=== PATIENT | male | born 1940 | race Caucasian/White ===

== ENCOUNTER 2018-03-11 14:02 | Inpatient (IN) ==
[2018-03-11] MEDS ORDERED: HYDROmorphone 2 MG/ML VIAL IV PRN (14:52)
--- NOTE | 2018-03-11 14:58 | Emergency Department Note ---
Fall HPI - General Chief Complaint: Fall Stated Complaint: Fall Time Seen by Provider: 03/11/18 14:12 Source: EMS Mode of arrival: EMS - History of Present Illness HPI Narrative: This patient slipped and fell getting out of a car short while ago and broke his right hip and right shoulder. Did not hit his head. He does have a history of atrial fib intermittently but is not on any blood thinners. Otherwise says his health history is okay. - Related Data Home Medications Medication Instructions Recorded Confirmed Carvedilol [Coreg] 3.125 mg PO BID 03/11/18 03/11/18 Citalopram [Celexa] 40 mg PO HS 03/11/18 03/11/18 Dutasteride [Avodart] 0.5 mg PO DAILY 03/11/18 03/11/18 Latanoprost/Pf [Latanoprost 0.005% 7.5 ml OP HS 03/11/18 03/11/18 Eye Drop] Propafenone [Rythmol] 225 mg PO Q8 03/11/18 03/11/18 Tamsulosin [Flomax] 0.8 mg PO HS 03/11/18 03/11/18 Allergies Allergy/AdvReac Type Severity Reaction Status Date / Time No Known Drug Allergies Allergy Verified 03/11/18 14:02 Review of Systems All systems ED: reviewed and negative except as stated. Fall PMH - Past Medical History Medical history: Reports: atrial fibrillation - Social History smoking status: Never smoker Physical Exam Limitations: no limitations General appearance: alert Head: atraumatic Eye: Present: normal appearance ENT: normal exam Neck: Present: normal inspection Chest: Present: normal inspection Respiratory: Present: normal lung sounds bilaterally Cardiovascular: Present: regular rate, normal rhythm, normal heart sounds Abdominal: Present: soft. Absent: distention, tenderness Neurological: Present: alert Psychiatric: Present: normal affect Skin: Present: warm, dry Course Vital Signs Temperature 97.5 F 03/11/18 14:03 Pulse Rate 70 03/11/18 14:03 Respiratory Rate 18 03/11/18 14:03 Blood Pressure 166/100 03/11/18 14:03 Pulse Oximetry (%) 95 03/11/18 14:03 Temperature 97.5 F 03/11/18 15:50 Pulse Rate 73 03/11/18 15:50 Respiratory Rate 18 03/11/18 15:50 Blood Pressure 156/93 03/11/18 15:50 Pulse Oximetry (%) 98 03/11/18 15:50 Fall - MDM Narrative Medical decision making narrative: I discussed this case with the orthopedist Dr. Enrique who wants to fix him tonight. Dr. Delgado with the hospitalist will admit him to the hospital. - Lab Data Lab results reviewed: Yes I reviewed the patient's lab results. Result diagrams: 03/11/18 15:13 03/11/18 15:13 Lab Results 03/11/18 03/11/18 03/11/18 Range/Units 15:13 15:13 15:16 WBC 7.7 (4.5-11.0) K/mcL RBC 3.54 L (4.50-5.90) M/mcL Hgb 11.6 L (13.5-16.5) g/dL Hct 34.8 L (41.0-55.0) % MCV 98.5 (80.0-100.0) fL MCH 32.8 (26.0-34.0) pg MCHC 33.3 (31.0-36.0) g/dL RDW 12.4 (11.5-14.5) % Plt Count 177 (140-440) K/mcL MPV 7.6 (7.4-10.4) fL Gran % 82.2 H (38.0-78.0) % Lymph % (Auto) 9.6 L (15.5-49.0) % Jay % (Auto) 6.0 (1.0-12.0) % Eos % (Auto) 1.7 (0.0-7.0) % Baso % (Auto) 0.5 (0.0-2.0) % Gran # 6.3 (1.8-8.0) K/mcL Lymph # (Auto) 0.7 L (1.5-4.8) K/mcL Jay # (Auto) 0.5 (0.1-0.9) K/mcL Eos # (Auto) 0.1 (0.0-0.7) K/mcL Baso # (Auto) 0 (0.0-0.3) K/mcL PT 15.3 H (11.9-14.5) sec INR 1.2 H (0.9-1.1) Urine Color Yellow Urine Appearance Clear Urine pH 6.0 (5.0-9.0) Ur Specific [place] 1.020 (1.000-1.035) Urine Protein Neg (NEG) mg/dL Urine Glucose (UA) Negative (NEG) mg/dL Urine Ketones 5/tr A (NEG) mg/dL Urine Occult Blood Neg (<0.03) mg/dL Urine Nitrate Neg (NEG) Urine Bilirubin Neg (NEG) mg/dL Urine Urobilinogen 2.0 A (NEG) mg/dL Ur Leukocyte Esterase Neg (NEG) /uL Ur Culture Indicated? No - Radiology Data Radiology results reviewed: Yes I reviewed the patient's radiology results. Disposition Pt seen by [facility]/PA only: No Clinical Impression: Shoulder fracture, right, Hip fracture, right Disposition: Xfer As Inpt ([facility]) Condition: Fair Referrals: Lennox Guerrero MD [Primary Care Provider] - Time of Disposition: 15:56
--- NOTE | 2018-03-11 15:00 | XRay Report ---
CLINICAL INFORMATION: Trauma - small COMPARISON: None. FINDINGS: Mildly comminuted intertrochanteric fracture shows 4 cm medial displacement of lesser trochanteric fragment. There is 2 cm inferior and lateral displacement of the distal femoral diaphyseal fragment. This has resulted in coxa vera type angulation. Both SI and hip joints are normal in width and alignment without arthritic change. Soft tissues normal. IMPRESSION: Mildly comminuted, displaced intertrochanteric fracture of the right hip. Interpreted and Authenticated by: Damion Amador 03/11/18
--- NOTE | 2018-03-11 15:03 | XRay Report ---
CLINICAL INFORMATION: fall, pain COMPARISON: None. FINDINGS: There is a mildly comminuted, transverse fracture of the surgical neck of the humerus. Distal fragment is displaced less than 1 cm medially and anteriorly. There is also moderate impaction. Benign-appearing focal cortical thickening of the lateral proximal humeral diaphysis. Mild acromioclavicular and glenohumeral degeneration noted. IMPRESSION: Transverse, mildly impacted, minimally displaced fracture of the surgical neck of humerus Interpreted and Authenticated by: Damion Amador 03/11/18
--- NOTE | 2018-03-11 15:04 | XRay Report ---
CLINICAL INFORMATION: Hip fx COMPARISON: None. FINDINGS: The heart is mildly enlarged. Ectatic thoracic aorta is noted. There is also dilatation of the right cephalic artery manifest as increased density in the upper right paratracheal region. Lungs are clear. No evidence of pneumohemothorax. No fracture identified IMPRESSION: No acute cardiopulmonary disease or acute posttraumatic change Interpreted and Authenticated by: Damion Amador 03/11/18
[2018-03-11 15:46] LABS: Appearance,Urine CLEAR; Bilirubin,Urine NEG (NEG); Color,Urine YELLOW; Glucose,Urine (UA) NEGATIVE (NEG); Leukocyte Esterase,Urine NEG /uL (NEG); Protein,Urine NEG (NEG); Urine Blood NEG mg/dL (<0.03)
[2018-03-11 15:46] LABS: Basophils # (Auto) 0 K/mcL (0.0-0.3); Basophils % (Auto) 0.5 % (0.0-2.0); Eosinophils # (Auto) 0.1 K/mcL (0.0-0.7); Eosinophils % (Auto) 1.7 % (0.0-7.0); Granulocytes % (Auto) 82.2 % (38.0-78.0); Lymphocytes # (Auto) 0.7 K/mcL (1.5-4.8); Lymphocytes % (Auto) 9.6 % (15.5-49.0); Mean Cell Volume 98.5 fL (80.0-100.0); Mean Corpuscular HGB Conc 33.3 g/dL (31.0-36.0); Monocytes # (Auto) 0.5 K/mcL (0.1-0.9); Platelet Count 177 K/mcL (140-440); RBC 3.54 M/mcL (4.50-5.90); Red Cell Distribution Width 12.4 % (11.5-14.5)
[2018-03-11] MEDS ORDERED: 0.9 % SODIUM CHLORIDE 1,000 ML IV ONE (15:46)
--- NOTE | 2018-03-11 15:46 | Internal Med History&Physical ---
Medical - H&P: [facility] Patient information: Note initiated : 03/11/18 at 3:42 pm Service Date, if different from initiated Date: [] Patient: Michael Wu a 77 y/o M admitted on for Fall. Chief Complaint: [] History of present illness: Mr. Wu is a 77 year old M who presents to the ER with hip pain after falling while getting out of his car, with immediate pain to the right hip. In the ED he was evaluated and found to have right hip fracture as well as a right humerus fracture. Patient states that he was getting up out of the car when he fell. He denies any prodromal symptoms, no dizziness lightheadedness chest pain shortness of breath or flushing or palpitations. He does not know whether he simply tripped or lost his balance. He did have an eye appointment earlier that day and did have his eyes dilated, he also states he has bad knees and falls on occasion from that. In the ED his vital signs were stable with exception of somewhat elevated blood pressure. He did not hit his head. His pain to his right hip and shoulder are relatively controlled with pain medication. He does follow with cardiology for paroxysmal atrial fibrillation. He had a rhythm monitor for several weeks, as well as an echocardiogram done all a month ago he states that was okay. 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 Ryan. Review of Systems: Pertinent positives as above. Denies headache/fever/chills/nausea/vomiting/chest or abdominal pain/cough/dyspnea/diarrhea. Remaining 10 point review of systems reviewed negative Medical - H&P: PMH Medical history: Past medical history: Paroxysmal atrial ablation follows with Dr. Ryan he is on Coreg and Rythmol, he has been on warfarin in the past but says he was taken off of that after he was cardioverted several times into a normal rhythm. He does take a baby aspirin daily. Depression Prostate cancer Past surgical history: he has had a lithotripsy but denies any surgeries Family history: Mother had CHF and father diabetes Social history: Denies tobacco use drinks alcohol occasionally, does not use a cane or walker to ambulate, lives at home with his , continues to work Medical - H&P: Meds Home Medications Medication Instructions Recorded Confirmed Type Carvedilol [Coreg] 3.125 mg PO BID 03/11/18 03/11/18 History Citalopram [Celexa] 40 mg PO HS 03/11/18 03/11/18 History Dutasteride [Avodart] 0.5 mg PO DAILY 03/11/18 03/11/18 History Latanoprost/Pf [Latanoprost 0.005% 7.5 ml OP HS 03/11/18 03/11/18 History Eye Drop] Propafenone [Rythmol] 225 mg PO Q8 03/11/18 03/11/18 History Tamsulosin [Flomax] 0.8 mg PO HS 03/11/18 03/11/18 History Allergies Allergy/AdvReac Type Severity Reaction Status Date / Time No Known Drug Allergies Allergy Verified 03/11/18 14:02 Medical - H&P: Exam - Constitutional Vitals: Temp Pulse Resp BP Pulse Ox 97.5 F 70 18 166/100 95 03/11/18 14:03 03/11/18 14:03 03/11/18 14:03 03/11/18 14:03 03/11/18 14:03 Exam: General: Alert, Awake, No acute Distress Eyes/N/T: EOMI, PEERL, Head/Neck: neck supple, normocephalic atraumatic CV: Regular with occasional ectopic, No murmurs, normal s1/s2 Pulm: Clear b/l, no wheezing/rhonchi/rales Abd: soft, nontender, +BS x4 Ext: no clubbing/cyanosis, trace edema on the right and 1+ on the left lower extremity edema Neuro: Alert, no focal deficits, moves all extremities, CN 2-12 grossly intact, sensations intact b/l upper/lower Skin: warm/dry Medical - H&P: Reslt - Labs CBC & Chem 7: 03/11/18 15:13 03/11/18 15:13 Medical - H&P: A/P - Narrative A/P Narrative: A: *Hip Fx, Right: *Humerus Fx, Right: *PAF: On Coreg and Rythmol, was on warfarin in the past but taken off after car dioversion, is on baby aspirin *Depression: * P: -Dr. Enrique for orthopedic surgery -N.p.o. -Monitor on telemetry postoperatively for first night -cont coreg -check preop labs -pt/ot -ppx: SCD's, post-op per Ortho - ?warfarin
[2018-03-11] MEDS ORDERED: METOCLOPRAMIDE 10 MG/2 ML VIAL IV PRN ×2 (16:00→22:59)
[2018-03-11] MEDS ORDERED: ENALAPRILAT 1.25 MG/ML VIAL IV PRN ×2 (16:00→22:59)
[2018-03-11] MEDS ORDERED: POTASSIUM CHLORIDE 20 MEQ TABLET PO PRN ×4 (16:00→22:59)
[2018-03-11] MEDS ORDERED: ONDANSETRON 4 MG/2 ML VIAL IV PRN ×6 (16:00→22:59)
[2018-03-11] MEDS ORDERED: POLYETHYLENE GLYCOL 3350 17 GM PACKET PO PRN ×3 (16:00→22:59)
[2018-03-11] MEDS ORDERED: MAGNESIUM SULFATE 2 GM/50 ML BAG IV PRN ×2 (16:00→22:59)
[2018-03-11] MEDS ORDERED: POTASSIUM CHLORIDE 40 MEQ in DEXTROSE 5% IN WATER 500 ML IV PRN ×2 (16:00→22:59)
[2018-03-11] MEDS ORDERED: LACTULOSE 20 GM/30 ML ORAL.SOL PO PRN ×2 (16:00→22:59)
[2018-03-11] MEDS ORDERED: ACETAMINOPHEN 325 MG TABLET PO PRN ×2 (16:00→22:59)
[2018-03-11] MEDS ORDERED: PROCHLORPERAZINE 10 MG/2 ML VIAL IV PRN ×2 (16:00→22:59)
[2018-03-11] MEDS ORDERED: HYDROcodone/APAP 5/325MG TABLET PO PRN (16:00)
[2018-03-11 16:11] LABS: ALT/SGPT 17 U/l (0-40); Albumin 3.8 gm/dL (3.2-5.2); Alkaline Phosphatase 81 U/L (39-117); Bilirubin,Direct < 0.2 mg/dL (0.0-0.3); Blood Urea Nitrogen 24 mg/dl (8-23); Gamma Glutamyl Transpeptidase 18 U/L (8-61); Uric Acid 4.5 mg/dL (2.5-8.0)
[2018-03-11] MEDS ORDERED: 0.9 % SODIUM CHLORIDE 1,000 ML IV SCH ×3 (17:15→22:59)
[2018-03-11] MEDS ORDERED: ceFAZolin 1 GM VIAL IV SCH (19:45)
[2018-03-11] MEDS ORDERED: ceFAZolin 1 GM VIAL ONE (19:49)
[2018-03-11] MEDS ORDERED: KETAMINE 100 MG/ML ML IV ONE (20:30)
[2018-03-11] MEDS ORDERED: GLYCOPYRROLATE 0.2 MG/ML VIAL IV ONE (20:30)
[2018-03-11] MEDS ORDERED: DEXAMETHASONE 10 MG/ML VIAL IV ONE (20:30)
[2018-03-11] MEDS ORDERED: PHENYLEPHRINE 10 MG/ML VIAL IV ONE (20:30)
[2018-03-11] MEDS ORDERED: ePHEDrine 50 MG/ML AMPUL IV ONE (20:30)
[2018-03-11] MEDS ORDERED: ESMOLOL 100 MG/10 ML VIAL IV ONE (20:30)
[2018-03-11] MEDS ORDERED: LIDOCAINE HCL/PF 100 MG/5 ML SYRINGE IV ONE (20:30)
[2018-03-11] MEDS ORDERED: MIDAZOLAM 5 MG/5 ML VIAL IV ONE (20:30)
[2018-03-11] MEDS ORDERED: TRANEXAMIC ACID 1,000 MG/10 ML VIAL IV ONE (20:30)
[2018-03-11] MEDS ORDERED: ONDANSETRON 4 MG/2 ML VIAL IV ONE (20:30)
[2018-03-11] MEDS ORDERED: fentaNYL 100 MCG/2 ML VIAL IV ONE (20:30)
[2018-03-11] MEDS ORDERED: PROPOFOL 200 MG/20 ML VIAL IV ONE (20:30)
[2018-03-11] MEDS ORDERED: LATANOPROST OPHTH DROPS 2.5ML BOTTLE OU SCH (21:00)
[2018-03-11] MEDS ORDERED: FAMOTIDINE 20 MG TABLET PO SCH (21:00)
[2018-03-11] MEDS ORDERED: SENNOSIDES 1 TABLET PO PRN (21:00)
[2018-03-11] MEDS ORDERED: DOCUSATE SODIUM 100 MG CAPSULE PO SCH (21:00)
[2018-03-11] MEDS ORDERED: CITALOPRAM 20 MG TABLET PO SCH (21:00)
[2018-03-11] MEDS ORDERED: TAMSULOSIN 0.4 MG CAPSULE PO SCH (21:00)
[2018-03-11] MEDS ORDERED: CARVEDILOL 3.125 MG TABLET PO SCH (21:00)
[2018-03-11] MEDS ORDERED: IPRATROPIUM/ALBUTEROL 3 ML AMPUL.NEB NEB PRN ×2 (21:10→22:59)
[2018-03-11] MEDS ORDERED: ACETAMINOPHEN 1,000 MG/100 ML BOTTLE IV ONE (21:10)
[2018-03-11] MEDS ORDERED: FLUMAZENIL 0.1 MG/ML ML IV PRN ×2 (21:10→22:59)
[2018-03-11] MEDS ORDERED: METOPROLOL TARTRATE 5 MG/5 ML VIAL IV PRN ×2 (21:10→22:59)
[2018-03-11] MEDS ORDERED: METHOCARBAMOL 1,000 MG/10 ML VIAL IV PRN ×2 (21:10→22:59)
[2018-03-11] MEDS ORDERED: LACTATED RINGERS 250 ML IV PRN ×2 (21:10→22:59)
[2018-03-11] MEDS ORDERED: BENZOCAINE/MENTHOL 1 LOZENGE PO PRN ×4 (21:10→22:59)
[2018-03-11] MEDS ORDERED: fentaNYL 100 MCG/2 ML VIAL IV PRN ×2 (21:10→22:59)
[2018-03-11] MEDS ORDERED: NALOXONE HCL 0.4 MG/ML VIAL IV PRN ×2 (21:10→22:59)
[2018-03-11] MEDS ORDERED: LACTATED RINGERS 1,000 ML IV SCH ×2 (21:15→22:59)
--- NOTE | 2018-03-11 21:34 | Brief Operative Note ---
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
[2018-03-11] MEDS ORDERED: HYDROcodone/APAP 10/325MG TABLET PO PRN (21:38)
[2018-03-11] MEDS ORDERED: MAGNESIUM HYDROXIDE 30 ML ORAL.SUSP PO PRN ×2 (21:38→22:59)
[2018-03-11] MEDS ORDERED: METHOCARBAMOL 750 MG TABLET PO PRN (21:38)
[2018-03-11] MEDS ORDERED: FLEETS ADULT ENEMA PR PRN ×2 (21:38→22:59)
[2018-03-11] MEDS ORDERED: BISACODYL 10 MG SUPP.RECT PR PRN ×2 (21:38→22:59)
[2018-03-11] MEDS ORDERED: ONDANSETRON 4 MG ODT TABLET SL PRN ×2 (21:38→22:59)
[2018-03-11] MEDS ORDERED: 0.9 % SODIUM CHLORIDE 10 ML SYRINGE IV SCH (22:00)
[2018-03-11] MEDS ORDERED: PROPAFENONE 150 MG TABLET PO SCH (22:00)
--- NOTE | 2018-03-11 23:25 | History and Physical Report ---
DATE OF ADMISSION: 03/11/2018 CHIEF COMPLAINT: Right hip fracture and a right humerus fracture. HISTORY OF PRESENT ILLNESS: The patient is a 77-year-old male who was getting out of his car earlier today when he fell immediately onto the right hip at ground level and was unable to ambulate or get up at that time. He also landed on his right arm and shoulder. He was brought to [facility]. In the emergency room, he was found to have a right hip and right humerus fractures. At this point in time, the patient states that he has significant pain in his right hip and his right shoulder, but denies pain in any other extremity. Denies hitting his head, syncope, chest pain or shortness of breath, numbness or tingling in any extremity. He states that he does not routinely fall and usually has pretty good balance. PAST MEDICAL HISTORY: Significant for atrial fibrillation and prostate cancer. The patient denies any significant surgical history. REVIEW OF SYSTEMS: Ten-point review of systems was reviewed and is negative except as documented in the HPI. SOCIAL HISTORY: Denies tobacco use, but drinks alcohol socially. HOME MEDICATIONS: Available in the chart. PHYSICAL EXAMINATION: VITAL SIGNS: Temperature of 97.5, pulse is 70, respirations 18, blood pressure 166/100, pulse ox is 95% on room air. GENERAL: He is alert, awake, oriented and in mild acute distress secondary to pain. HEENT: Head is normocephalic, atraumatic. CARDIOVASCULAR: Irregular rhythm, regular rate. No murmurs, gallops, or rubs. PULMONARY: All anterior lung bernal are clear to auscultation bilaterally. EXTREMITIES: Lower extremity exam, the right lower extremity is shortened and externally rotated. It is tender to palpation over the greater trochanter. Bilateral lower extremities are DP/PT pulses 2+ bilaterally. Neurovascularly intact. Capillary refill less than 3 seconds. Right upper extremity is in a sling, tender to palpation over the greater tuberosity. Normal by inspection. No significant skin deformity or bony deformity. The left upper extremity is within normal limits. Radial pulses 2+. Neurovascularly intact bilaterally. LABORATORY DATA: Pending. Imaging of the right humerus shows a right proximal humerus fracture that is nondisplaced and imaging of the right hip shows an intertrochanteric right femur fracture that is also nondisplaced. PLAN: After reviewing these images with Dr. Enrique, the recommended course of action and concerns to the right humerus, as it is nondisplaced, is to place extremity in a sling and allow it to heal conservatively. We did discuss that there is a risk for nonunion and the possibility for the need for repeat surgery in the future; however, the patient understands these risks and wishes to proceed conservatively for the right humerus. In regards to the right hip due to the nondisplacement of the hip, the recommended surgical intervention is an intramedullary nailing of the right hip for stabilization of the fracture and to allow for weightbearing and ambulation activities. We had a lengthy discussion regarding the risks with the surgery including the risk of nonunion, the risk of infection, the risk for need for repeat surgery as well as the risks associated with the anesthesia. The patient understands these risks and wished to proceed with surgery. All questions were answered at today's bedside. [email or web address] Job ID: [id number] Doc ID: [id number] Elisabeth [place]
[2018-03-12] MEDS: 0.9 % SODIUM CHLORIDE 1,000 ML IV SCH ×4 (00:24→15:43)
[2018-03-12] MEDS ORDERED: ceFAZolin 1 GM VIAL IV SCH ×2 (03:30→05:45)
--- NOTE | 2018-03-12 04:26 | XRay Report ---
CLINICAL INFORMATION: INTRA OP RIGHT FEMUR GAMMA NAILING COMPARISON: Preoperative film 03/11/2018 FINDINGS: Comminuted intertrochanteric fracture is reduced anatomic alignment now transfixed by gamma nail. Right hip joint is unremarkable IMPRESSION: ORIF comminuted intertrochanteric fracture - now anatomically aligned Interpreted and Authenticated by: Damion Amador 03/12/18
[2018-03-12 05:40] LABS: Basophils # (Auto) 0 K/mcL (0.0-0.3); Basophils % (Auto) 0.1 % (0.0-2.0); Eosinophils # (Auto) 0 K/mcL (0.0-0.7); Eosinophils % (Auto) 0.1 % (0.0-7.0); Granulocytes % (Auto) 92.2 % (38.0-78.0); Lymphocytes # (Auto) 0.4 K/mcL (1.5-4.8); Lymphocytes % (Auto) 4.5 % (15.5-49.0); Mean Cell Volume 98.2 fL (80.0-100.0); Monocytes # (Auto) 0.2 K/mcL (0.1-0.9); Monocytes % (Auto) 3.1 % (1.0-12.0); Platelet Count 160 K/mcL (140-440); RBC 3.21 M/mcL (4.50-5.90); Red Cell Distribution Width 12.6 % (11.5-14.5)
[2018-03-12] MEDS ORDERED: ceFAZolin 1 GM VIAL ONE (05:53)
[2018-03-12] MEDS ORDERED: HYDROcodone/APAP 10/325MG TABLET PO ONE (06:03)
[2018-03-12] MEDS ORDERED: METHOCARBAMOL 750 MG TABLET PO ONE (06:04)
[2018-03-12 06:07] LABS: ALT/SGPT 16 U/l (0-40); Albumin 3.5 gm/dL (3.2-5.2); Albumin/Globulin Ratio 1.8 (1.0-2.3); Alkaline Phosphatase 77 U/L (39-117); Bilirubin,Direct < 0.2 mg/dL (0.0-0.3); Blood Urea Nitrogen 25 mg/dl (8-23); Gamma Glutamyl Transpeptidase 17 U/L (8-61); Uric Acid 4.2 mg/dL (2.5-8.0)
[2018-03-12] MEDS: METHOCARBAMOL 750 MG TABLET PO PRN ×2 (06:07→18:57)
[2018-03-12] MEDS: 0.9 % SODIUM CHLORIDE 10 ML SYRINGE IV SCH ×2 (06:24→14:26)
--- NOTE | 2018-03-12 07:00 | Internal Med Progress Note ---
Medical - PN: Subj Patient information: Note initiated : 03/12/18 at 6:55 am Service Date, if different from initiated Date: [] Patient: Michael Wu a 77 y/o M admitted on 03/11/18 for Fall. Chief Complaint: [] Interval history: Mr. Wu is a 77 year old M who presents to the ER with hip pain after falling while getting out of his car, with immediate pain to the right hip. In the ED he was evaluated and found to have right hip fracture as well as a right humerus fracture. Patient states that he was getting up out of the car when he fell. He denies any prodromal symptoms, no dizziness lightheadedness chest pain shortness of breath or flushing or palpitations. He does not know whether he simply tripped or lost his balance. He did have an eye appointment earlier that day and did have his eyes dilated, he also states he has bad knees and falls on occasion from that. In the ED his vital signs were stable with exception of somewhat elevated blood pressure. He did not hit his head. His pain to his right hip and shoulder are relatively controlled with pain medication. He does follow with cardiology for paroxysmal atrial fibrillation. 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 Ryan. 03/12 had ORIF of the right hip last night. Slept okay last night, pain controlled. No other complaints. Review of Systems: denies headache/fever/chills/nausea/vomiting/chest or abdominal pain/cough /dyspnea/diarrhea. Otherwise see above. - Constitutional Vitals: Vital Signs Temp Pulse Resp BP Pulse Ox 98.5 F 80 20 102/79 95 03/12/18 06:51 03/12/18 04:00 03/12/18 06:51 03/12/18 06:51 03/12/18 06:51 Period Temp Pulse Resp BP Sys/Brown Pulse Ox Last 24 Hr 97.5 F-98.5 F 31-80 9-20 93-169/64-100 93-98 Intake and Output 03/11/18 03/12/18 03/12/18 21:59 05:59 13:59 Intake Total 2400 / 2980 580 / 2980 Output Total 570 / 745 175 / 745 Balance 1830 / 2235 405 / 2235 Weight 102.058 kg Intake & Output: Intake & Output 03/11/18 03/12/18 03/12/18 21:59 05:59 13:59 Intake Total 2400 / 2980 580 / 2980 Output Total 570 / 745 175 / 745 Balance 1830 / 2235 405 / 2235 Weight 102.058 kg Intake: IV 1000 / 1100 100 / 1100 Sodium Chloride 0.9% 1,000 ml @ 1000 / 1000 Wide Open IV BOLUS ONE Rx#: [id number] Oral 380 / 380 IV - Manual Only 1400 / 1500 100 / 1500 Output: Urine Catheter Amount 550 / 725 175 / 725 Estimated Blood Loss Other: Urine Appearance Clear Clear Uretheral (Osorio) Cloudy Clear Urine Color Bright Yellow Dark Yellow Uretheral (Osorio) Bright Yellow Dark Yellow Urine Odor Normal Exam: General: Alert, Awake, Eyes/N/T: EOMI, Head/Neck: neck supple, n CV: Regular with occasional ectopic, No murmurs, Pulm: Clear b/l, no wheezing/rhonchi/rales Abd: soft, nontender, +BS x4 Ext: no clubbing/cyanosis, trace edema on the right and 1+ on the left lower extremity edema Neuro: Alert, no focal deficits, moves all extremities, Skin: warm/dry Medical - PN: Obj Da - Labs CBC & Chem 7: 03/12/18 04:41 03/12/18 04:41 Labs: Abnormal Lab Results 03/12/18 03/12/18 03/11/18 04:41 04:41 15:16 RBC 3.21 L Hgb 10.7 L Hct 31.6 L Gran % 92.2 H Lymph % (Auto) 4.5 L Lymph # (Auto) 0.4 L PT INR Carbon Dioxide 21 L BUN 25 H Creatinine Glucose 155 H Calcium Phosphorus Total Protein 5.4 L Globulin 1.9 L Urine Ketones 5/tr A Urine Urobilinogen 2.0 A 03/11/18 03/11/18 03/11/18 15:13 15:13 15:13 RBC 3.54 L Hgb 11.6 L Hct 34.8 L Gran % 82.2 H Lymph % (Auto) 9.6 L Lymph # (Auto) 0.7 L PT 15.3 H INR 1.2 H Carbon Dioxide BUN 24 H Creatinine 1.3 H Glucose 126 H Calcium 8.4 L Phosphorus 2.3 L Total Protein 5.7 L Globulin 1.9 L Urine Ketones Urine Urobilinogen Meds: Medications Acetaminophen (Tylenol) 650 mg PO Q6HP PRN PRN Reason: PAIN/FEVER > 101 Hydrocodone Bitart/Acetaminophen ([place] 10/325mg) 0 tab PO Q4HP PRN PRN Reason: PAIN LEVEL 3-6 Bisacodyl (Dulcolax) 10 mg OR Q2-3DAYS PRN PRN Reason: Constipation Carvedilol (Coreg) 3.125 mg PO BID [facility] Citalopram Hydrobromide (Celexa) 20 mg PO HS [facility] Docusate Sodium (Colace) 100 mg PO BID [facility] Dutasteride (Avodart) 0.5 mg PO DAILY [facility] Enalaprilat (Vasotec) 0.625 mg IV Q2HP PRN PRN Reason: sbp>155 Enoxaparin Sodium (Lovenox) 30 mg SQ BID [facility] Famotidine (Pepcid) 20 mg PO BID [facility] Potassium Chloride 40 meq/ (Dextrose) 520 mls @ 130 mls/hr IV ONCE PRN PRN Reason: Potassium < 3 Magnesium Sulfate (Magnesium Sulfate) 2 gm in 50 mls @ 50 mls/hr IV ONCE PRN PRN Reason: Magnesium </= 1.6 Sodium Chloride (Sodium Chloride 0.9%) 1,000 mls @ 125 mls/hr IV .Q8H [facility] Last Admin: 03/12/18 03:54 Dose: 125 mls/hr Documented by: Lactulose (Cephulac) 10 gm PO DAILYP PRN PRN Reason: Constipation Latanoprost (Xalatan Ophth Drops) 1 gtt OU HS [facility] Magnesium Hydroxide (Milk Of Magnesia) 30 ml PO BIDP PRN PRN Reason: Constipation Methocarbamol (Robaxin) 750 mg PO Q6HP PRN PRN Reason: Muscle Spasm Last Admin: 03/12/18 06:07 Dose: 750 mg Documented by: Metoclopramide HCl (Reglan) 10 mg IV Q6HP PRN PRN Reason: Nausea And Vomiting Morphine Sulfate (Morphine) 0 mg IV Q1HP PRN PRN Reason: PAIN LEVEL > 6 Last Admin: 01/17/19 23:13 Dose: 3 mg Documented by: Ondansetron HCl (Zofran Odt) 4 mg SL Q4HP PRN PRN Reason: Nausea And Vomiting Ondansetron HCl (Zofran) 4 mg IV Q4HP PRN PRN Reason: Nausea And Vomiting Polyethylene Glycol (Miralax) 17 gm PO DAILYP PRN PRN Reason: Constipation Potassium Chloride (Kdur) 40 meq PO ONCE PRN PRN Reason: Potassium is 3-3.5 Potassium Chloride (Kdur) 40 meq PO ONCE PRN PRN Reason: Potassium < 3 Prochlorperazine (Compazine) 10 mg IV Q6HP PRN PRN Reason: Nausea And Vomiting Propafenone HCl (Rythmol) 225 mg PO Q8 [facility] Senna (Senokot) 2 tab PO HS [facility] Sodium Biphosphate/Sodium Phosphate (Fleets Adult) 1 dose OR Q3-4DAYS PRN PRN Reason: Constipation Sodium Chloride (Saline Flush) 10 ml IV Q8 [facility] Last Admin: 03/12/18 06:24 Dose: 10 ml Documented by: Tamsulosin HCl (Flomax) 0.8 mg PO HS [facility] Throat Lozenges (Cepacol) 1 lozenge PO PRN PRN PRN Reason: Sore Throat Medical - PN: A/P - Time Spent With Patient Total time spent is greater than 50% in coordination of care (as documented) at patient's floor/unit and/or counseling patient: - Narrative A/P Narrative: A: *Hip Fx, Right: s/p ORIF (03/11) *Humerus Fx, Right: Immobilizer in place *PAF: On Coreg and Rythmol, was on warfarin in the past but taken off after cardioversion, is on baby aspirin *Depression: *CKD II: resolved P: -Arm/Hip per Ortho - -Monitor on telemetry postoperatively for first night -cont coreg/rhythmol - -pt/ot -ppx: SCD's, post-op per Ortho - lovenox bid Medical - PN: Qual - VTE Deep Vein Thrombosis/Pulmonary Embolism Present on Admission: No
[2018-03-12] MEDS: PROPAFENONE 150 MG TABLET PO SCH ×3 (07:02→20:37)
--- NOTE | 2018-03-12 07:27 | Operative Note ---
DATE OF OPERATION: 03/11/2018 PREOPERATIVE DIAGNOSIS: Intertrochanteric fracture, right hip. POSTOPERATIVE DIAGNOSIS: Intertrochanteric fracture, right hip. PROCEDURE: Right hip cephalomedullary nailing. SURGEON: Julian Enrique M.D. SENIOR CREDIT OFFICER SURGEON: Elisabeth Madrid PA-C ANESTHESIA: Spinal with LMA assist. ESTIMATED BLOOD LOSS: 150 mL COMPLICATIONS: None noted. SPECIMENS REMOVED: None. DRAINS: None. IMPLANTS: Cheryl gamma 3 trochanteric nail, titanium 11 x 180 x 125; Grimes titanium lag screw 10.5 x 110 mm; Cheryl fully threaded locking screw 5 x 37.5. INDICATIONS: The patient fell and was unable to ambulate. Radiographs have confirmed a displaced intertrochanteric fracture of the proximal femur. The patient was admitted to the hospital and underwent medical clearance. After a long discussion about treatment options, the patient elected to proceed with cephalomedullary nailing. The risks and benefits were discussed with the patient in detail including, but not limited to, the risks of anesthesia, problems with the heart or lungs related to anesthesia, infection, compromise or injury to the nerves and blood vessels, deep venous thrombosis, pulmonary embolism, pneumonia, continued pain after surgery, worsening pain or symptoms after surgery, swelling, loss of motion, malunion, non-union, leg length discrepancy, and need for repeat surgery. DESCRIPTION OF PROCEDURE: The patient was seen in pre-anesthesia waiting room where all questions were answered and the correct side and site were identified and marked. The patient was then brought to the operating room and administered the anesthetic and given preoperative antibiotics. A time-out was then called. The patient was placed on the fracture table with all prominences well padded. The leg was brought into traction, adduction, and slight internal rotation. We used C-arm with orthogonal views to confirm anatomic reduction of the fracture. The extremity was prepped and draped in the usual sterile fashion. C-arm was again used to confirm landmarks. A percutaneous incision was created about 4 centimeters proximal to the greater trochanter. A guide pin was placed into the femoral canal under fluoroscopy after we found the appropriate starting position along the medial boarder of the trochanter and just anterior to the center position laterally. We placed a protector sleeve proximally and over-reamed with the 17 mm proximal reamer. Next, we changed out the guide pin for a ball-tipped guide kerri and placed it into the femoral canal. Position was confirmed with the C-arm. The 180 mm Cheryl Gamma nail was then placed with appropriate depth and version using the percutaneous targeting guide. The lateral lag screw sleeve was placed in the targeting guide and a second small percutaneous incision was made to allow the sleeve access to the lateral cortex of the femur. We drilled the guide pin into the center position of the femoral head confirmed with fluoroscopy. We measured and drilled over the guide pin. The lag screw was then inserted and we compressed the fracture then placed the proximal screw. The targeting sleeve was again used to place a percutaneous 5.0 mm screw distally in the static hole. It was drilled, measured, and placed using C-arm guidance. Traction was removed on the hip. The targeting device was then removed and final radiographs were taken confirming reduction of the fracture and adequate placement of all hardware. We thoroughly irrigated the three percutaneous incisions and closed the deep fascia with #0 Vicryl. We closed the subcutaneous tissue and skin in layers out to diana in the skin. A sterile pressure dressing was applied. All needle and sponge counts were correct. The patient was transferred to the recovery room in stable condition. CAITLIN:otf Job ID: [id number] Doc ID: [id number] Julian Enrique MD
[2018-03-12] MEDS: DOCUSATE SODIUM 100 MG CAPSULE PO SCH ×2 (08:10→20:40)
[2018-03-12] MEDS: CARVEDILOL 3.125 MG TABLET PO SCH ×2 (08:10→20:39)
[2018-03-12] MEDS: FAMOTIDINE 20 MG TABLET PO SCH ×2 (08:11→20:40)
[2018-03-12] MEDS: DUTASTERIDE 0.5 MG CAPSULE PO SCH (08:11)
[2018-03-12] MEDS: ENOXAPARIN 30 MG/0.3 ML SYRINGE SQ SCH ×2 (08:11→20:39)
--- NOTE | 2018-03-12 08:37 | Orthopedic Progress Note ---
Subjective Patient information: Note initiated : 03/12/18 at 8:35 am Service Date, if different from initiated Date: [] Patient: Michael Wu 77 y/o M admitted on 03/11/18 for Fall. Chief Complaint: [] Interval history: feeling better today. up to edge of bed Objective Vital signs: Vital Signs Temp Pulse Pulse Resp BP BP Pulse Ox 03/12/18 08:09 64 133/70 03/12/18 06:51 98.5 F 20 102/79 95 03/12/18 04:00 97.7 F 80 16 113/65 93 03/12/18 02:30 78 16 98/74 96 03/12/18 01:30 76 16 111/75 97 03/12/18 00:30 75 16 107/74 96 03/12/18 00:00 97.8 F 75 16 109/69 97 03/11/18 23:30 74 16 107/71 96 03/11/18 23:15 74 16 105/64 94 03/11/18 23:01 74 109/68 94 03/11/18 22:56 74 16 107/67 96 03/11/18 22:37 98.0 F 76 12 107/68 94 03/11/18 22:32 76 12 103/72 94 03/11/18 22:17 76 12 119/84 94 03/11/18 22:02 77 11 L 93/69 93 03/11/18 21:57 73 10 L 137/83 98 03/11/18 21:52 77 9 L 95/77 96 03/11/18 21:47 97.6 F 73 12 113/67 98 03/11/18 16:11 98.1 F 72 20 169/98 93 03/11/18 16:00 98 F 72 169/98 93 03/11/18 15:50 97.5 F 73 18 156/93 98 03/11/18 15:44 73 98 03/11/18 15:32 71 156/93 97 03/11/18 15:17 71 154/87 95 03/11/18 15:01 72 157/94 95 03/11/18 14:55 69 150/93 96 03/11/18 14:17 152/93 03/11/18 14:11 31 L 166/100 94 03/11/18 14:03 97.5 F 70 18 166/100 95 Intake and Output 03/11/18 03/12/18 03/12/18 21:59 05:59 13:59 Intake Total 2400 580 360 Output Total 570 175 Balance 1830 405 360 Intake: IV 1000 100 Sodium Chloride 0.9% 1,000 ml @ 1000 Wide Open IV BOLUS ONE Rx#: [id number] Oral 380 360 IV - Manual Only 1400 100 Output: Urine Catheter Amount 550 175 Estimated Blood Loss 20 Other: Urine Appearance Clear Clear Clear Uretheral (Osorio) Cloudy Clear Urine Color Bright Yellow Dark Yellow Light Vashti Uretheral (Osorio) Bright Yellow Dark Yellow Urine Odor Normal Weight 225 lb Intake & Output: Intake & Output 03/11/18 03/12/18 03/12/18 21:59 05:59 13:59 Intake Total 2400 580 360 Output Total 570 175 Balance 1830 405 360 Weight 225 lb Intake: IV 1000 100 Sodium Chloride 0.9% 1,000 ml @ 1000 Wide Open IV BOLUS ONE Rx#: [id number] Oral 380 360 IV - Manual Only 1400 100 Output: Urine Catheter Amount 550 175 Estimated Blood Loss 20 Other: Urine Appearance Clear Clear Clear Uretheral (Osorio) Cloudy Clear Urine Color Bright Yellow Dark Yellow Light Vashti Uretheral (Osorio) Bright Yellow Dark Yellow Urine Odor Normal Incision: Yes healing Incision clean and dry: Yes Dressing: Yes clean, Yes dry, Yes intact Weight bearing status: full (on right hip, non right shoulder) Neurological exam IM: Yes abnormal gait, Yes alert, Yes oriented X3, Yes motor sensory intact, Yes neurovascular intact Extremities exam IM: No calf tenderness, Yes Foot pink and warm, Yes neurovascular intact - Labs CBC & BMP: 03/12/18 04:41 03/12/18 04:41 Labs: Orthopedic Labs 03/11/18 15:13 PT 15.3 H INR 1.2 H 03/12/18 03/11/18 04:41 15:13 Hgb 10.7 L 11.6 L Hct 31.6 L 34.8 L Assessment and Plan (1) Shoulder fracture, right Status: Acute (2) Hip fracture, right pod 1 s/p right hip IT fx, right proximal humerus fx wbat right hip, nwb right shoulder pain control dvt prophylaxis d/c planning - will need rehab Status: Acute
--- NOTE | 2018-03-12 08:38 | Discharge Summary ---
Ortho Discharge Plan - General - Patient Instructions Diet: Regular Diet Activity: ambulate with assistive device, weight bearing as tolerated (right leg), non weight bearing (right upper extremity) Dressing Care: May shower in 2 days - Problem Maintenance (1) Shoulder fracture, right Status: Acute (2) Hip fracture, right Status: Acute - Follow Up Plan Follow Up Appointments: Lennox Guerrero MD [Primary Care Provider] - Disposition: Xfer SNF Prognosis: Fair Rehab Potential: Fair I certify that the patient requires SNF services: Yes Overall status at discharge: patient is progressing back to baseline
[2018-03-12] MEDS ORDERED: DUTASTERIDE 0.5 MG CAPSULE PO SCH (09:00)
[2018-03-12] MEDS ORDERED: DOCUSATE SODIUM 100 MG CAPSULE PO SCH (09:00)
[2018-03-12] MEDS ORDERED: ENOXAPARIN 30 MG/0.3 ML SYRINGE SQ SCH (09:00)
[2018-03-12] MEDS: HYDROcodone/APAP 10/325MG TABLET PO PRN ×4 (09:45→23:43)
[2018-03-12] MEDS: CITALOPRAM 20 MG TABLET PO SCH (20:39)
[2018-03-12] MEDS: TAMSULOSIN 0.4 MG CAPSULE PO SCH (20:39)
[2018-03-12] MEDS: LATANOPROST OPHTH DROPS 2.5ML BOTTLE OU SCH (20:40)
[2018-03-12] MEDS: SENNOSIDES 1 TABLET PO SCH (20:41)
[2018-03-12] MEDS ORDERED: SENNOSIDES 1 TABLET PO SCH (21:00)
[2018-03-13] MEDS: HYDROcodone/APAP 10/325MG TABLET PO PRN ×4 (04:32→17:40)
[2018-03-13] MEDS: METHOCARBAMOL 750 MG TABLET PO PRN ×3 (04:32→20:51)
[2018-03-13] MEDS: 0.9 % SODIUM CHLORIDE 10 ML SYRINGE IV SCH ×4 (05:38→20:53)
[2018-03-13] MEDS: PROPAFENONE 150 MG TABLET PO SCH ×3 (05:39→20:52)
--- NOTE | 2018-03-13 07:06 | Internal Med Progress Note ---
Medical - PN: Subj Patient information: Note initiated : 03/13/18 at 7:05 am Service Date, if different from initiated Date: [] Patient: Michael Wu a 77 y/o M admitted on 03/11/18 for Fall. Chief Complaint: [] Interval history: Mr. Wu is a 77 year old M who presents to the ER with hip pain after falling while getting out of his car, with immediate pain to the right hip. In the ED he was evaluated and found to have right hip fracture as well as a right humerus fracture. Patient states that he was getting up out of the car when he fell. He denies any prodromal symptoms, no dizziness lightheadedness chest pain shortness of breath or flushing or palpitations. He does not know whether he simply tripped or lost his balance. He did have an eye appointment earlier that day and did have his eyes dilated, he also states he has bad knees and falls on occasion from that. In the ED his vital signs were stable with exception of somewhat elevated blood pressure. He did not hit his head. His pain to his right hip and shoulder are relatively controlled with pain medication. He does follow with cardiology for paroxysmal atrial fibrillation. 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 03/12 had ORIF of the right hip last night. Slept okay last night, pain controlled. No other complaints. 03/13 Poor sleep last night, has some spasms in the right lower extremity. Otherwise no new complaints, no overnight events Review of Systems: denies headache/fever/chills/nausea/vomiting/chest or abdominal pain/cough/dyspnea/diarrhea. Otherwise see above. - Constitutional Vitals: Vital Signs Temp Pulse Resp BP Pulse Ox 98.2 F 61 18 123/73 96 03/13/18 04:00 03/13/18 04:00 03/13/18 04:00 03/13/18 04:00 03/13/18 04:00 Period Temp Pulse Resp BP Sys/Brown Pulse Ox Last 24 Hr 98.2 F-99.8 F 60-74 16-20 118-137/70-84 94-96 Intake and Output 03/12/18 03/13/18 03/13/18 21:59 05:59 13:59 Intake Total 550 300 Output Total 375 850 Balance 175 -550 Weight 101.922 kg Intake & Output: Intake & Output 03/12/18 03/13/18 03/13/18 21:59 05:59 13:59 Intake Total 550 300 Output Total 375 850 Balance 175 -550 Weight 101.922 kg Intake: Oral 550 GI Tube Flush 300 Output: Urine Catheter Amount 375 850 Other: Meal Dinner Percent of Meal Consumed 75% Urine Appearance Clear Clear Urine Color Light Vashti Bright Yellow Exam: General: Alert, Awake, Eyes/N/T: EOMI, Head/Neck: neck supple, CV: Regular today, No murmurs, Pulm: Clear b/l, no wheezing/rhonchi/rales Abd: soft, nontender, +BS x4 Ext: no clubbing/cyanosis, mild b/l LE edema Neuro: Alert, no focal deficits, moves all extremities, Skin: warm/dry Medical - PN: Obj Da - Labs CBC & Chem 7: 03/12/18 04:41 03/12/18 04:41 Labs: Abnormal Lab Results 03/12/18 03/12/18 03/11/18 04:41 04:41 15:16 RBC 3.21 L Hgb 10.7 L Hct 31.6 L Gran % 92.2 H Lymph % (Auto) 4.5 L Lymph # (Auto) 0.4 L PT INR Carbon Dioxide 21 L BUN 25 H Creatinine Glucose 155 H Calcium Phosphorus Total Protein 5.4 L Globulin 1.9 L Urine Ketones 5/tr A Urine Urobilinogen 2.0 A 03/11/18 03/11/18 03/11/18 15:13 15:13 15:13 RBC 3.54 L Hgb 11.6 L Hct 34.8 L Gran % 82.2 H Lymph % (Auto) 9.6 L Lymph # (Auto) 0.7 L PT 15.3 H INR 1.2 H Carbon Dioxide BUN 24 H Creatinine 1.3 H Glucose 126 H Calcium 8.4 L Phosphorus 2.3 L Total Protein 5.7 L Globulin 1.9 L Urine Ketones Urine Urobilinogen Meds: Medications Acetaminophen (Tylenol) 650 mg PO Q6HP PRN PRN Reason: PAIN/FEVER > 101 Hydrocodone Bitart/Acetaminophen ([place] 10/325mg) 0 tab PO Q4HP PRN PRN Reason: PAIN LEVEL 3-6 Last Admin: 03/13/18 04:32 Dose: 1 tab Documented by: Bisacodyl (Dulcolax) [address] Q2-3DAYS PRN PRN Reason: Constipation Carvedilol (Coreg) 3.125 mg PO BID [facility] Last Admin: 03/12/18 20:39 Dose: 3.125 mg Documented by: Citalopram Hydrobromide (Celexa) 20 mg PO [facility] Last Admin: 03/12/18 20:39 Dose: 20 mg Documented by: Docusate Sodium (Colace) 100 mg PO BID [facility] Last Admin: 03/12/18 20:40 Dose: Not Given Documented by: Dutasteride (Avodart) 0.5 mg PO DAILY [facility] Last Admin: 03/12/18 08:11 Dose: 0.5 mg Documented by: Enalaprilat (Vasotec) 0.625 mg IV Q2HP PRN PRN Reason: sbp>155 Enoxaparin Sodium (Lovenox) 30 mg SQ BID [facility] Last Admin: 03/12/18 20:39 Dose: 30 mg Documented by: Famotidine (Pepcid) 20 mg PO BID [facility] Last Admin: 03/12/18 20:40 Dose: 20 mg Documented by: Potassium Chloride 40 meq/ (Dextrose) 520 mls @ 130 mls/hr IV ONCE PRN PRN Reason: Potassium < 3 Magnesium Sulfate (Magnesium Sulfate) 2 gm in 50 mls @ 50 mls/hr IV ONCE PRN PRN Reason: Magnesium </= 1.6 Lactulose (Cephulac) 10 gm PO DAILYP PRN PRN Reason: Constipation Latanoprost (Xalatan Ophth Drops) 1 gtt OU [facility] Last Admin: 03/12/18 20:40 Dose: 1 gtt Documented by: Magnesium Hydroxide (Milk Of Magnesia) 30 ml PO BIDP PRN PRN Reason: Constipation Methocarbamol (Robaxin) 750 mg PO Q6HP PRN PRN Reason: Muscle Spasm Last Admin: 03/13/18 04:32 Dose: 750 mg Documented by: Metoclopramide HCl (Reglan) 10 mg IV Q6HP PRN PRN Reason: Nausea And Vomiting Morphine Sulfate (Morphine) 0 mg IV Q1HP PRN PRN Reason: PAIN LEVEL > 6 Last Admin: 03/11/18 23:13 Dose: 3 mg Documented by: Ondansetron HCl (Zofran Odt) 4 mg SL Q4HP PRN PRN Reason: Nausea And Vomiting Ondansetron HCl (Zofran) 4 mg IV Q4HP PRN PRN Reason: Nausea And Vomiting Polyethylene Glycol (Miralax) 17 gm PO DAILYP PRN PRN Reason: Constipation Potassium Chloride (Kdur) 40 meq PO ONCE PRN PRN Reason: Potassium is 3-3.5 Potassium Chloride (Kdur) 40 meq PO ONCE PRN PRN Reason: Potassium < 3 Prochlorperazine (Compazine) 10 mg IV Q6HP PRN PRN Reason: Nausea And Vomiting Propafenone HCl (Rythmol) 225 mg PO Q8 [facility] Last Admin: 03/13/18 05:39 Dose: 225 mg Documented by: Senna (Senokot) 2 tab PO [facility] Last Admin: 03/12/18 20:41 Dose: Not Given Documented by: Sodium Biphosphate/Sodium Phosphate (Fleets Adult) [address] Q3-4DAYS PRN PRN Reason: Constipation Sodium Chloride (Saline Flush) 10 ml IV Q8 [facility] Last Admin: 03/13/18 05:39 Dose: 10 ml Documented by: Tamsulosin HCl (Flomax) 0.8 mg PO [facility] Last Admin: 03/12/18 20:39 Dose: 0.8 mg Documented by: Throat Lozenges (Cepacol) 1 lozenge PO PRN PRN PRN Reason: Sore Throat Medical - PN: A/P - Time Spent With Patient Total time spent is greater than 50% in coordination of care (as documented) at patient's floor/unit and/or counseling patient: - Narrative A/P Narrative: A: *Hip Fx, Right: s/p ORIF (03/11) *Humerus Fx, Right: Immobilizer in place *PAF: On Coreg and Rythmol, was on warfarin in the past but taken off after ca rdioversion, is on baby aspirin *Depression: *CKD II: resolved P: -Arm/Hip per Ortho -pain control -cont coreg/rhythmol - -pt/ot -ppx: SCD's, post-op per Ortho; lovenox bid SNF placement Medical - PN: Qual - VTE Deep Vein Thrombosis/Pulmonary Embolism Present on Admission: No
--- NOTE | 2018-03-13 09:44 | Discharge Summary ---
Medical - DS: Prov Patient information: Note initiated : 03/13/18 at 9:42 am Service Date, if different from initiated Date: [] Patient: Michael Wu 77 y/o M admitted on 03/11/18 for Fall. Chief Complaint: [] Date of admission: 03/11/18 15:55 Discharge date: 03/14/18 Primary care physician: Lennox Guerrero Consults: 03/11/18 14:56 Consult to Physician [CONS] Stat Comment: Consulting Provider: Damion Enrique Reason For Exam: Physician to Consult 03/11/18 14:59 Consult to Physician [CONS] Stat Comment: Consulting Provider: Kevin Delgado Reason For Exam: Physician to Consult Medical - DS: Meds - Discharge Medications Prescriptions: Enoxaparin [Lovenox] 40 mg SQ DAILY #30 syringe HYDROcodone/APAP 10/325MG [[place] 10-325Mg] 1 - 2 tab PO Q4H PRN #60 tab PRN Reason: Pain Active and Home Medications: Home Medications Carvedilol [Coreg] 3.125 mg PO BID 03/11/18 [History Confirmed 03/11/18 Last Taken 03/11/18] Citalopram [Celexa] 40 mg PO HS 03/11/18 [History Confirmed 03/11/18 Last Taken 03/10/18] Dutasteride [Avodart] 0.5 mg PO DAILY 03/11/18 [History Confirmed 03/11/18 Last Taken 03/11/18] Latanoprost/Pf [Latanoprost 0.005% Eye Drop] 1 drop BOTH EYES HS 03/11/18 [History Confirmed 03/11/18 Last Taken 03/10/18] Propafenone [Rythmol] 225 mg PO Q8 03/11/18 [History Confirmed 03/11/18 Last Taken 03/11/18] Tamsulosin [Flomax] 0.8 mg PO HS 03/11/18 [History Confirmed 03/11/18 Last Taken 03/10/18] Enoxaparin [Lovenox] 40 mg SQ DAILY #30 syringe 03/12/18 [Rx Last Taken Unknown] HYDROcodone/APAP 10/325MG [[place] 10-325Mg] 1 - 2 tab PO Q4H PRN #60 tab 03/12/18 [Rx Last Taken Unknown] Medical - DS: Hosp Hospital course: Mr. Wu is a 77 year old M Mr. Wu is a 77 year old M who presents to the ER with hip pain after falling while getting out of his car, with immediate pain to the right hip. In the ED he was evaluated and found to have right hip fracture as well as a right humerus fracture. Patient states that he was getting up out of the car when he fell. He denies any prodromal symptoms, no dizziness lightheadedness chest pain shortness of breath or flushing or palpitations. He does not know whether he simply tripped or lost his balance. He did have an eye appointment earlier that day and did have his eyes dilated, he also states he has bad knees and falls on occasion from that. In the ED his vital signs were stable with exception of somewhat elevated blood pressure. He did not hit his head. His pain to his right hip and shoulder are relatively controlled with pain medication. He does follow with cardiology for paroxysmal atrial fibrillation. 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 03/12 had ORIF of the right hip last night. Slept okay last night, pain controlled. No other complaints. 03/13 Poor sleep last night, has some spasms in the right lower extremity. Otherwise no new complaints, no overnight events 03/14 No overnight events, doing well. Stable for discharge Discharge diagnosis: Right hip fracture, right humerus fracture, PAF, depression - Time Spent with Patient Total time spent providing and/or coordinating discharge services: Greater than 30 minutes Medical - DS: Exam - Constitutional Vitals: Vital Signs Temp Pulse Pulse Resp BP Pulse Ox 03/13/18 07:44 98.3 F 20 132/76 98 03/13/18 04:00 98.2 F 61 18 123/73 96 03/12/18 23:47 98.2 F 68 20 131/81 95 03/12/18 20:00 98.5 F 60 18 134/75 94 03/12/18 19:30 74 18 94 03/12/18 15:49 99 F 16 137/84 94 03/12/18 12:00 99.8 F H 20 118/73 94 Intake and Output 03/12/18 03/13/18 03/13/18 21:59 05:59 13:59 Intake Total 550 300 Output Total 375 850 Balance 175 -550 Intake: Oral 550 GI Tube Flush 300 Output: Urine Catheter Amount 375 850 Other: Meal Dinner Percent of Meal Consumed 75% Urine Appearance Clear Clear Urine Color Light Vashti Bright Yellow Weight 101.922 kg Medical - DS: A/P - Patient/Caregiver Discharge Instructions Activity: as per physical therapy Diet: Regular Diet Prescriptions: Enoxaparin [Lovenox] 40 mg SQ DAILY #30 syringe HYDROcodone/APAP 10/325MG [[place] 10-325Mg] 1 - 2 tab PO Q4H PRN #60 tab PRN Reason: Pain Other Amb Orders: OT Discharge Order Location: None Selected Physical Therapy at Discharge - General Location: None Selected - Follow up Plan Follow up with: Lennox Guerrero MD [Primary Care Provider] - Damion Enrique MD [Physician] - Disposition: Xfer SNF Prognosis: Fair Rehab Potential: Fair I certify that the patient requires SNF services: Yes Overall status at discharge: patient is progressing back to baseline Medical - DS: Qual - VTE Deep Vein Thrombosis/Pulmonary Embolism Present on Admission: No
[2018-03-13] MEDS: CARVEDILOL 3.125 MG TABLET PO SCH ×2 (10:34→20:53)
[2018-03-13] MEDS: FAMOTIDINE 20 MG TABLET PO SCH ×2 (10:34→20:52)
[2018-03-13] MEDS: ENOXAPARIN 30 MG/0.3 ML SYRINGE SQ SCH ×2 (10:34→20:51)
[2018-03-13] MEDS: DOCUSATE SODIUM 100 MG CAPSULE PO SCH ×3 (10:34→20:52)
[2018-03-13] MEDS: DUTASTERIDE 0.5 MG CAPSULE PO SCH (10:35)
[2018-03-13] MEDS: TAMSULOSIN 0.4 MG CAPSULE PO SCH (20:51)
[2018-03-13] MEDS: LATANOPROST OPHTH DROPS 2.5ML BOTTLE OU SCH (20:52)
[2018-03-13] MEDS: CITALOPRAM 20 MG TABLET PO SCH (20:52)
[2018-03-13] MEDS: SENNOSIDES 1 TABLET PO SCH (20:53)
[2018-03-14] MEDS: HYDROcodone/APAP 10/325MG TABLET PO PRN ×2 (03:56→10:15)
[2018-03-14] MEDS: METHOCARBAMOL 750 MG TABLET PO PRN ×2 (03:56→10:14)
[2018-03-14] MEDS: PROPAFENONE 150 MG TABLET PO SCH (07:44)
[2018-03-14] MEDS: 0.9 % SODIUM CHLORIDE 10 ML SYRINGE IV SCH (07:45)
[2018-03-14] MEDS: ENOXAPARIN 30 MG/0.3 ML SYRINGE SQ SCH (10:06)
[2018-03-14] MEDS: DUTASTERIDE 0.5 MG CAPSULE PO SCH (10:06)
[2018-03-14] MEDS: FAMOTIDINE 20 MG TABLET PO SCH (10:07)
[2018-03-14] MEDS: CARVEDILOL 3.125 MG TABLET PO SCH (10:07)
[2018-03-14] MEDS: DOCUSATE SODIUM 100 MG CAPSULE PO SCH (10:07)
--- NOTE | 2018-03-17 14:51 | XRay Report ---
HISTORY: FINDINGS: Remains displaced medially and is from the shaft a distance of 11 mm. The hip joint itself appears normal. There is a moderate compression fracture at L3 of undetermined age. I have no prior comparison exams. No other fracture is seen. IMPRESSION: Good alignment following internal fixation of the fractured proximal right femur Fractured L3 vertebra Interpreted and Authenticated by: Kiran Ruano 03/17/18
== END 2018-03-14 12:12 | DRG 481 ==
LOC: ED 14:02 → ICU 15:55
PROVIDERS: ADMIT Internal Medicine; ATTEND Internal Medicine